=== PATIENT | female | born 1940 | race Caucasian/White ===

== ENCOUNTER 2022-09-29 06:48 | Inpatient (IN) | payer OTHER ==
[~2022-09-29] VITALS: Ht 165.1 cm; Wt 68.5 kg
[2022-09-29 07:46] LABS: BASOPHILS % 0.7 % (0.0-2.0); EOSINOPHILS % 3.1 % (0.0-5.0); HEMATOCRIT. 28.8 % (36.0-48.0); HEMOGLOBIN. 9.3 g/dL (12.0-16.0); LYMPHOCYTES % 13.1 % (20.0-50.0); MEAN CORPUSCULAR VOLUME 83.2 fL (81.0-99.0); MEAN PLATELET VOLUME 9.4 fl (7.4-10.4); MONOCYTES % 8.7 % (2.0-8.0); NEUTROPHILS % 74.4 % (40.0-76.0); PLATELET 352 x1000/uL (130-400); RED BLOOD CELL COUNT 3.46 mill/uL (4.2-5.4); RED CELL DISTRIBUTION WIDTH 16.4 % (11.6-14.6)
[2022-09-29 07:55] LABS: CHLORIDE 110 mEq/L (98-107)
[2022-09-29 08:37] LABS: BG BASE EXCESS -2.6 mmol/L (-2.0-2.0); BG CARBOXYHEMOGLOBIN 0.5 % (0.5-1.5); BG DEOXYHEMOGLOBIN 5.7 % (0.0-5.0); BG FRACTION INSPIRED OXYGEN 32; BG HCO3 ACT 21.2 mmol/L (22.0-26.0); BG METHEMOGLOBIN 0.3 % (0.0-1.5); BG OXYGEN SATURATION 94.3 % (92.0-98.5); BG OXYHEMOGLOBIN 93.5 % (94.0-97.0); BG PCO2 32.7 mmHg (35.0-45.0); BG PH 7.429 (7.350-7.450); BG PO2 71.3 mmHg (75.0-100.0); BG SAMPLE SITE RIGHT RADIAL; BG TOTAL HEMOGLOBIN 10.1 g/dL (12.0-18.0); BG VENT MODE NASAL CANNULA
[2022-09-29] MEDS ORDERED: CEFTRIAXONE 1 G PREMIX 50 ML IV ONE (09:30)
[2022-09-29] MEDS ORDERED: AZITHROMYCIN 500MG/250ML 250 ML IV ONE (09:30)
[2022-09-29] MEDS ORDERED: FUROSEMIDE 40MG/4ML VIAL IVP ONE (09:30)
[2022-09-29] MEDS ORDERED: ALBUTEROL (0.083%) 2.5MG/3ML NEB HHN STA (12:59)
[2022-09-29] MEDS ORDERED: IPRATROPIUM BROMIDE (0.02%) 0.5MG/2.5ML NEB HHN STA (12:59)
[2022-09-29] MEDS ORDERED: KETOROLAC 15MG/ML VIAL IV PRN (14:45)
[2022-09-29] MEDS ORDERED: ENOXAPARIN 40MG/0.4ML SYR SUBCUT SCH (14:45)
[2022-09-29] MEDS ORDERED: DOCUSATE SODIUM 100MG CAPSULE PO PRN (14:45)
[2022-09-29] MEDS ORDERED: GUAIFENESIN 200MG/10ML SUGAR FREE UDC PO PRN (14:45)
[2022-09-29] MEDS ORDERED: CLONIDINE 0.1MG TABLET PO PRN (14:45)
[2022-09-29] MEDS ORDERED: ACETAMINOPHEN 325MG TABLET PO PRN ×2 (14:45)
[2022-09-29] MEDS ORDERED: MAGNESIUM/ALUMINUM HYDROXIDE/SIMETHICONE 30ML UDC PO PRN (14:45)
[2022-09-29] MEDS ORDERED: ONDANSETRON HCL 4MG/2ML INJ IV PRN (14:45)
[2022-09-29] MEDS ORDERED: NITROGLYCERIN 0.4MG TABLET SL SL PRN (14:45)
[2022-09-29] MEDS ORDERED: IPRATROPIUM/ALBUTEROL 0.5-3(2.5)MG/3ML NEB NEB PRN (14:45)
[2022-09-29] MEDS ORDERED: ALBUTEROL (0.083%) 2.5MG/3ML NEB HHN NR (15:00)
[2022-09-29] MEDS ORDERED: IPRATROPIUM BROMIDE (0.02%) 0.5MG/2.5ML NEB HHN NR (15:00)
[2022-09-29 15:09] LABS: BG BASE EXCESS -3.8 mmol/L (-2.0-2.0); BG CARBOXYHEMOGLOBIN 0.3 % (0.5-1.5); BG DEOXYHEMOGLOBIN 0.4 % (0.0-5.0); BG FRACTION INSPIRED OXYGEN 100; BG HCO3 ACT 20.8 mmol/L (22.0-26.0); BG METHEMOGLOBIN 0.2 % (0.0-1.5); BG OXYGEN SATURATION 99.6 % (92.0-98.5); BG OXYHEMOGLOBIN 99.1 % (94.0-97.0); BG PCO2 36.1 mmHg (35.0-45.0); BG PH 7.379 (7.350-7.450); BG PO2 303.2 mmHg (75.0-100.0); BG SAMPLE SITE RIGHT RADIAL; BG TOTAL HEMOGLOBIN 10.2 g/dL (12.0-18.0); BG VENT MODE MASK - BIPAP
[2022-09-29 15:38] LABS: T4 FREE 1.62 ng/dL (0.76-1.46)
[2022-09-29] MEDS: ENOXAPARIN 30MG/0.3ML SYR SUBCUT SCH (16:00)
[2022-09-29] MEDS ORDERED: DEXTROSE 50% WATER 50ML SYRINGE IV PRN (16:00)
[2022-09-29] MEDS: BLOOD SUGAR DIAGNOSTIC STRIP TEST SCH ×2 (17:29→21:00)
[2022-09-29] MEDS: FUROSEMIDE 40MG/4ML VIAL IVP SCH (18:15)
[2022-09-29] MEDS: INSULIN LISPRO 100 UNITS/ML SUBCUT SCH ×2 (18:20→21:00)
[2022-09-29 20:23] LABS: FOLIC ACID (FOLATE) SERUM 12.2 ng/mL (>5.38)
[2022-09-29] MEDS ORDERED: ZOLPIDEM TARTRATE 5MG TABLET PO PRN (21:00)
[2022-09-29 21:04] LABS: *AMPHETAMINES SCREEN URINE NEGATIVE (NEGATIVE); *BARBITURATES SCREEN URINE NEGATIVE (NEGATIVE); *BENZODIAZEPINES SCREEN URINE NEGATIVE (NEGATIVE); *COCAINE SCREEN URINE NEGATIVE (NEGATIVE); CANNABINOID URINE SCREEN NEGATIVE (NEGATIVE); METHADONE URINE SCREEN NEGATIVE (NEGATIVE); OPIATES URINE SCREEN NEGATIVE (NEGATIVE); PHENCYCLIDINE URINE SCREEN NEGATIVE (NEGATIVE)
[2022-09-29 23:00] VITALS: BP 119/68
[2022-09-29] MEDS: GUAIFENESIN 600MG ER TABLET PO SCH (23:53)
[2022-09-29] MEDS: FAMOTIDINE 20MG TABLET PO SCH (23:55)
[2022-09-29] MEDS: SPIRONOLACTONE 25MG TABLET PO SCH (23:56)
[2022-09-30] VITALS (8 sets, daily range): BP systolic 99–118; BP diastolic 40–69
[2022-09-30 01:18] LABS: CREATINE KINASE MB FRACTION 2.6 ng/mL (0.5-3.6)
[2022-09-30 05:48] LABS: CHLORIDE 108 mEq/L (98-107)
[2022-09-30 05:58] LABS: HEMATOCRIT. 28.3 % (36.0-48.0); HEMOGLOBIN. 9.3 g/dL (12.0-16.0); MEAN CORPUSCULAR HEMOGLOBIN 27.3 pg (28.0-32.0); MEAN PLATELET VOLUME 9.9 fl (7.4-10.4); PLATELET 339 x1000/uL (130-400); RED CELL DISTRIBUTION WIDTH 16.5 % (11.6-14.6)
[2022-09-30 06:06] LABS: CREATINE KINASE 106 IU/L (26-192); CREATINE KINASE MB FRACTION 2.6 ng/mL (0.5-3.6); PHOSPHORUS 5.4 mg/dL (2.5-4.9)
[2022-09-30] MEDS: INSULIN LISPRO 100 UNITS/ML SUBCUT SCH ×4 (07:40→21:00)
[2022-09-30] MEDS: BLOOD SUGAR DIAGNOSTIC STRIP TEST SCH ×4 (07:40→21:00)
[2022-09-30] MEDS: GUAIFENESIN 600MG ER TABLET PO SCH ×2 (08:46→22:09)
[2022-09-30] MEDS: SPIRONOLACTONE 25MG TABLET PO SCH ×2 (08:46→22:11)
[2022-09-30] MEDS: FUROSEMIDE 40MG/4ML VIAL IVP SCH ×2 (08:47→16:48)
[2022-09-30] MEDS ORDERED: ASPIRIN 325MG EC TABLET PO SCH (09:00)
[2022-09-30 13:00] LABS: PLATELET ESTIMATE NORMAL
[2022-09-30] MEDS: ENOXAPARIN 30MG/0.3ML SYR SUBCUT SCH (15:32)
[2022-09-30] MEDS: FAMOTIDINE 20MG TABLET PO SCH (22:09)
[2022-10-01] VITALS (12 sets, daily range): BP systolic 98–129; BP diastolic 41–72
[2022-10-01] MEDS: FUROSEMIDE 40MG/4ML VIAL IVP SCH ×2 (07:05→16:38)
[2022-10-01] MEDS: INSULIN LISPRO 100 UNITS/ML SUBCUT SCH ×3 (08:00→21:00)
[2022-10-01] MEDS: BLOOD SUGAR DIAGNOSTIC STRIP TEST SCH ×4 (08:13→21:31)
[2022-10-01] MEDS: GUAIFENESIN 600MG ER TABLET PO SCH ×2 (09:06→21:52)
[2022-10-01] MEDS: SPIRONOLACTONE 25MG TABLET PO SCH ×2 (09:07→21:52)
[2022-10-01] MEDS ORDERED: METOLAZONE 10MG TABLET PO NR (09:15)
[2022-10-01] MEDS ORDERED: IPRATROPIUM BROMIDE (0.02%) 0.5MG/2.5ML NEB HHN PRN (11:15)
[2022-10-01] MEDS ORDERED: ALBUTEROL (0.083%) 2.5MG/3ML NEB HHN PRN (11:15)
[2022-10-01] MEDS ORDERED: IPRATROPIUM/ALBUTEROL 0.5-3(2.5)MG/3ML NEB HHN SCH (12:00)
[2022-10-01] MEDS: ALBUTEROL (0.083%) 2.5MG/3ML NEB HHN SCH ×3 (14:30→21:12)
[2022-10-01] MEDS: IPRATROPIUM BROMIDE (0.02%) 0.5MG/2.5ML NEB HHN SCH ×3 (14:31→21:12)
[2022-10-01] MEDS: ENOXAPARIN 30MG/0.3ML SYR SUBCUT SCH (16:38)
[2022-10-01] MEDS: FAMOTIDINE 20MG TABLET PO SCH (21:52)
[2022-10-02] VITALS (12 sets, daily range): BP systolic 110–131; BP diastolic 52–75
[2022-10-02] MEDS: ALBUTEROL (0.083%) 2.5MG/3ML NEB HHN SCH ×6 (00:16→20:33)
[2022-10-02] MEDS: IPRATROPIUM BROMIDE (0.02%) 0.5MG/2.5ML NEB HHN SCH ×6 (00:16→20:33)
[2022-10-02] MEDS: FUROSEMIDE 40MG/4ML VIAL IVP SCH ×2 (05:56→16:42)
[2022-10-02 06:38] LABS: HEMATOCRIT. 27.4 % (36.0-48.0); HEMOGLOBIN. 8.8 g/dL (12.0-16.0); MEAN CORPUSCULAR HEMOGLOBIN 26.9 pg (28.0-32.0); MEAN CORPUSCULAR VOLUME 83.6 fL (81.0-99.0); PLATELET 322 x1000/uL (130-400); RED BLOOD CELL COUNT 3.27 mill/uL (4.2-5.4); RED CELL DISTRIBUTION WIDTH 16.9 % (11.6-14.6)
[2022-10-02 07:24] LABS: PHOSPHORUS 3.9 mg/dL (2.5-4.9)
[2022-10-02] MEDS: BLOOD SUGAR DIAGNOSTIC STRIP TEST SCH ×4 (07:30→21:00)
[2022-10-02] MEDS: INSULIN LISPRO 100 UNITS/ML SUBCUT SCH ×4 (08:00→21:00)
[2022-10-02] MEDS: GUAIFENESIN 600MG ER TABLET PO SCH ×2 (08:36→21:04)
[2022-10-02] MEDS: SPIRONOLACTONE 25MG TABLET PO SCH ×2 (08:37→21:04)
[2022-10-02] MEDS ORDERED: METOLAZONE 10MG TABLET PO NR (09:45)
[2022-10-02 10:09] LABS: PLATELET ESTIMATE NORMAL
[2022-10-02] MEDS: ENOXAPARIN 30MG/0.3ML SYR SUBCUT SCH (16:42)
[2022-10-02] MEDS: FAMOTIDINE 20MG TABLET PO SCH (21:04)
[2022-10-03] VITALS (8 sets, daily range): BP systolic 109–121; BP diastolic 50–75
[2022-10-03] MEDS: IPRATROPIUM BROMIDE (0.02%) 0.5MG/2.5ML NEB HHN SCH ×4 (00:27→11:13)
[2022-10-03] MEDS: ALBUTEROL (0.083%) 2.5MG/3ML NEB HHN SCH ×4 (00:27→11:13)
[2022-10-03 06:31] LABS: BASOPHILS % 0.8 % (0.0-2.0); EOSINOPHILS % 3.7 % (0.0-5.0); HEMATOCRIT. 24.8 % (36.0-48.0); HEMOGLOBIN. 8.4 g/dL (12.0-16.0); LYMPHOCYTES % 8.8 % (20.0-50.0); MEAN CORPUSCULAR HEMOGLOBIN 27.3 pg (28.0-32.0); MEAN CORPUSCULAR VOLUME 81.1 fL (81.0-99.0); MEAN PLATELET VOLUME 9.9 fl (7.4-10.4); MONOCYTES % 8.5 % (2.0-8.0); NEUTROPHILS % 78.2 % (40.0-76.0); PLATELET 314 x1000/uL (130-400); RED BLOOD CELL COUNT 3.06 mill/uL (4.2-5.4); RED CELL DISTRIBUTION WIDTH 16.8 % (11.6-14.6)
[2022-10-03] MEDS: FUROSEMIDE 40MG/4ML VIAL IVP SCH (06:46)
[2022-10-03] MEDS: BLOOD SUGAR DIAGNOSTIC STRIP TEST SCH (07:30)
[2022-10-03 07:36] LABS: CHLORIDE 109 mEq/L (98-107)
[2022-10-03 07:48] LABS: PHOSPHORUS 3.7 mg/dL (2.5-4.9)
[2022-10-03] MEDS: INSULIN LISPRO 100 UNITS/ML SUBCUT SCH (08:00)
[2022-10-03] MEDS: SPIRONOLACTONE 25MG TABLET PO SCH (09:27)
[2022-10-03] MEDS: GUAIFENESIN 600MG ER TABLET PO SCH (09:27)
[2022-10-03] MEDS ORDERED: POTASSIUM CHLORIDE 20MEQ/PACKET PO NR (10:30)
[2022-10-03] MEDS ORDERED: METOLAZONE 2.5MG TABLET PO NR (10:30)
== END 2022-10-03 13:07 | disposition short-term general hospital (02) | DRG 291 ==
LOC: ER 06:48 → EDBEDREQ 17:33 → ENRESERV 19:06 → 5EST 20:57
PROVIDERS: ADMIT Internal Medicine; ATTEND Internal Medicine
PROC: 5A09357 Assistance with Respiratory Ventilation, Less than 24 Consecutive Hours, Continuous Positive Airway Pressure (ICD-10-PCS; principal; 2022-09-30)
PROC: 5A09357 Assistance with Respiratory Ventilation, Less than 24 Consecutive Hours, Continuous Positive Airway Pressure (ICD-10-PCS; 2022-10-01)
DX: I11.0 Hypertensive heart disease with heart failure (principal); I50.43 Acute on chronic combined systolic (congestive) and diastolic (congestive) heart failure; J96.01 Acute respiratory failure with hypoxia; N17.0 Acute kidney failure with tubular necrosis; I25.10 Atherosclerotic heart disease of native coronary artery without angina pectoris; Z20.822 Contact with and (suspected) exposure to COVID-19; E11.9 Type 2 diabetes mellitus without complications; I27.20 Pulmonary hypertension, unspecified; I48.0 Paroxysmal atrial fibrillation; Z95.0 Presence of cardiac pacemaker; D64.9 Anemia, unspecified; Z79.4 Long term (current) use of insulin
CPT/HCPCS: 36415; 36600; 71045; 76604; 76770; 80053; 80061; 80305; 82375; 82550; 82553; 82607; 82746; 82805; 82962; 83036; 83540; 83550; 83735; 83880; 84100; 84439; 84443; 84484; 85025; 87426; 93005; 93306; 93970; 94640; 94660; 99291; C9803; J0456; J0696; J1650; J1815; J1940

== ENCOUNTER 2023-10-15 00:53 | Emergency (ER) | payer OTHER ==
[~2023-10-15] VITALS: Ht 162.6 cm; Wt 68.0 kg
[2023-10-15 00:57] VITALS: O2SAT 99
[2023-10-15 01:22] LABS: BASOPHILS % 0.7 % (0.0-2.0); EOSINOPHILS % 4.3 % (0.0-5.0); HEMOGLOBIN. 13.4 g/dL (12.0-16.0); LYMPHOCYTES % 27.5 % (20.0-50.0); MEAN CORPUSCULAR HEMOGLOBIN 32.8 pg (28.0-32.0); MEAN CORPUSCULAR HGB CONC 33.5 g/dL (31.0-37.0); MEAN PLATELET VOLUME 9.1 fl (7.4-10.4); MONOCYTES % 5.7 % (2.0-8.0); NEUTROPHILS % 61.8 % (40.0-76.0); PLATELET 330 x1000/uL (130-400); RED BLOOD CELL COUNT 4.08 mill/uL (4.2-5.4); RED CELL DISTRIBUTION WIDTH 14.4 % (11.6-14.6); WHITE BLOOD COUNT 8.2 x1000/uL (4.5-11.0)
[2023-10-15 01:33] LABS: PARTIAL THROMBOPLASTIN TIME 25.6 sec (23.4-31.0); PROTHROMBIN TIME 10.8 sec (9.6-11.0)
[2023-10-15 02:54] LABS: CARBON DIOXIDE 19 mEq/L (21-32); CHLORIDE 107 mEq/L (98-107); GLUCOSE 132 mg/dL (70-105); POTASSIUM 3.9 mEq/L (3.5-5.1); SODIUM 139 mEq/L (136-145)
[2023-10-15 02:55] LABS: ALANINE AMINOTRANSFERASE 19 IU/L (10-49); ALBUMIN 4.9 g/dL (3.2-4.8); ASPARTATE AMINOTRANSFERASE 24 IU/L (<34); BILIRUBIN TOTAL 0.8 mg/dL (0.1-1.0); CALCIUM 9.5 mg/dL (8.7-10.4); CREATININE 1.3 mg/dL (0.6-1.0); PROTEIN TOTAL 8.2 g/dL (6.0-8.3); UREA NITROGEN BLOOD 27 mg/dL (9-23)
[2023-10-15 02:56] LABS: TROPONIN I HIGH SENSITIVITY 10 ng/L (3.0-34)
[2023-10-15] MEDS: FUROSEMIDE 40MG/4ML VIAL IVP ONE (05:18)
[2023-10-15 06:21] LABS: *AMPHETAMINES SCREEN URINE NEGATIVE (NEGATIVE); *BARBITURATES SCREEN URINE NEGATIVE (NEGATIVE); *BENZODIAZEPINES SCREEN URINE NEGATIVE (NEGATIVE); *COCAINE SCREEN URINE NEGATIVE (NEGATIVE); CANNABINOID URINE SCREEN NEGATIVE (NEGATIVE); ECSTASY MDMA SCREEN URINE NEGATIVE (NEGATIVE); METHADONE URINE SCREEN Neg (NEGATIVE); OPIATES URINE SCREEN NEGATIVE (NEGATIVE); PHENCYCLIDINE URINE SCREEN NEGATIVE (NEGATIVE)
[2023-10-15 08:30] VITALS: BP 141/57; PULSE 60; RESP 16; TEMP 97.6
== END 2023-10-15 09:10 | disposition short-term general hospital (02) ==
LOC: ER 00:53 → CANBEDREQ 10-16 14:23
DX: R09.02 Hypoxemia (principal); I50.9 Heart failure, unspecified; I11.0 Hypertensive heart disease with heart failure; E11.9 Type 2 diabetes mellitus without complications; Z98.890 Other specified postprocedural states; Z20.822 Contact with and (suspected) exposure to COVID-19
CPT/HCPCS: 80053; 80305; 80320; 83880; 85025; 85610; 85730; 84484; 36415; 71045; 93005; 96374; 99285; 87426; J1940; G0480